=== PATIENT | female | born 2000 | race African-American/Black ===

== ENCOUNTER 2021-02-06 18:54 | Emergency (ER) | payer SELFPAY ==
[2021-02-06 19:09] VITALS: BP 119/73; PULSE 87; TEMP 97; BMI 28.3
== END 2021-02-06 20:10 | disposition home or self-care (01) ==
LOC: JERFT 18:54
DX: H60.503 Unspecified acute noninfective otitis externa, bilateral (principal); H66.003 Acute suppurative otitis media without spontaneous rupture of ear drum, bilateral
CPT/HCPCS: 99282-25